=== PATIENT | male | born 1950 | race African-American/Black ===

== ENCOUNTER 2017-09-26 08:37 | Outpatient (CLI) | payer MEDICARE, MEDICAID ==
[~2017-09-26 08:37] MED LIST: AMLODIPINE BESY10 MG ORAL; ASPIRIN EC81 MG ORAL; HYDROCHLOROTHIA25 MG ORAL; HYTRIN5 MG PO; LAMISIL250 MG ORAL; RESTORIL15 MG ORAL
[2017-09-26 09:39] LABS: BLOOD UREA NITROGEN 14 mg/dL (7-18)
[2017-09-26 09:42] LABS: INR 0.9 (0.9-1.1)
--- NOTE | 2017-09-26 12:16 | Diagnostic Imaging Report ---
Clinical Indication: Intermittent abdominal pain for many years. History of colon carcinoma Technique: Patient given oral contrast. IV administration nonionic contrast. Venous phase spiral acquisition obtained through the abdomen and pelvis. Multiplanar reconstructions were generated. Total dose length product 503.72 mGycm. CTDIvol(s) 10.65 mGy. Dose reduction achieved using automated exposure control Comparison: 10/08/2014 Findings: Patient is status post right hemicolectomy. No evidence of diverticulosis or diverticulitis. Contrast is seen throughout the entirety of the small bowel and reaches throughout the entirety of the residual colon to the anus. No small bowel distention or small bowel wall thickening. Previously demonstrated small bowel distention is no longer evident. No free or loculated intraperitoneal air or fluid is evident. The distal esophagus, stomach, duodenum are unremarkable. The gallbladder is surgically absent. There is mild dilatation of the intrahepatic bile ducts. The extra hepatic bile ducts are mildly ectatic, common bile duct measuring 11 mm in diameter, but no definite downstream obstructive lesion is demonstrated. This is unchanged from the previous exam. No focal hepatic abnormality. The pancreatic duct is mildly ectatic. The pancreas is unremarkable. The spleen, adrenals, kidneys are all unremarkable. No retroperitoneal or mesenteric mass or adenopathy. No pelvic mass or adenopathy. There is mild thoracolumbar scoliotic deformity and fairly extensive secondary degenerative changes. Small lucencies in the bilateral iliac bones are unchanged from previous, presumed benign. The included lung bases appear hyperinflated, demonstrate some scarring, are otherwise clear Impression: No acute abnormality Evidence of prior right hemicolectomy, also previously demonstrated Surgically absent gallbladder Dilatation of the intrahepatic and extra hepatic bile ducts, without evidence of downstream obstructive lesion. Stable since prior study, presumably baseline for this patient. Nonetheless, correlation with liver function tests is recommended Other findings as noted, including pulmonary hyperinflation, right basilar pulmonary scarring, stable bilateral iliac bone lucencies, thoracolumbar scoliotic deformity and secondary degenerative change The CT scanner at [facility] is accredited by the [employer] and the scans are performed using protocols designed to limit radiation exposure to as low as reasonably achievable to attain images of sufficient resolution adequate for diagnostic evaluation.
== END 2017-09-26 10:37 | disposition home or self-care (01) ==
LOC: CAT 08:37
DX: R10.9 Unspecified abdominal pain (principal); Z90.49 Acquired absence of other specified parts of digestive tract; Z85.038 Personal history of other malignant neoplasm of large intestine
CPT/HCPCS: 36415; 74177; 82565; 84520; 85610; 85730; Q9963; Q9967

== ENCOUNTER 2018-02-28 11:27 | Emergency (ER) | payer MEDICARE, MEDICAID ==
[~2018-02-28] VITALS: Ht 180.3 cm; Wt 70.8 kg
[~2018-02-28 11:27] MED LIST changes: +EPCLUSA; +MULTIVITAMINS1 EAC2 ORAL; +TAMSULOSIN HCL0.4 MG ORAL; +UNOBMED
[2018-02-28] MEDS ORDERED: Methocarbamol 500mg tab ORAL ONE (12:00)
[2018-02-28] MEDS ORDERED: oxyCODONE HCL/Acetaminophen 5/325mg ORAL ONE (12:00)
[2018-02-28 13:01] VITALS: BP 192/105
--- NOTE | 2018-02-28 14:14 | Diagnostic Imaging Report ---
Indication: Severe chest pain Technique: 2 views of the chest Comparison: 02/17/2018 Findings: Again demonstrated is mild hyperinflation. No acute infiltrates, effusions, or congestion. There are degenerative spondylosis changes and mild thoracolumbar scoliotic deformity. There are left upper quadrant and epigastric surgical clips again noted. Findings are unchanged Impression: No acute process
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
[2018-02-28] MEDS ORDERED: ROBAXIN500 MG PO (15:40)
[2018-02-28] MEDS ORDERED: IBUPROFEN600 MG ORAL (15:40)
[2018-02-28] MEDS ORDERED: PERCOCET 5-3251 EACH ORAL (15:40)
[2018-02-28 15:42] VITALS: BP 139/76
[2018-02-28] MEDS ORDERED: LACTULOSE20 GM/301 ORAL (15:44)
[2018-02-28 15:58] VITALS: BP 139/76
--- NOTE | 2018-03-01 17:45 | Cardiology Report ---
APPROVED REPORT EKG Measurement Heart [id number] Sinus bradycardia Otherwise normal ECG
== END 2018-02-28 15:59 | disposition home or self-care (01) ==
LOC: EMR 11:55
DX: M62.838 Other muscle spasm (principal); S46.911A Strain of unspecified muscle, fascia and tendon at shoulder and upper arm level, right arm, initial encounter; X58.XXXA Exposure to other specified factors, initial encounter; Y92.9 Unspecified place or not applicable; I10 Essential (primary) hypertension; J44.9 Chronic obstructive pulmonary disease, unspecified; Z85.038 Personal history of other malignant neoplasm of large intestine; B19.20 Unspecified viral hepatitis C without hepatic coma
CPT/HCPCS: 71046; 93005; 96372; 99284; J1170